=== PATIENT | female | born 1975 ===

== ENCOUNTER 2021-05-29 17:43 | Emergency (ER) | payer SELFPAY ==
[2021-05-29 20:09] VITALS: BP 142/74
--- NOTE | 2021-05-29 21:39 | Emergency Department Report ---
ED General Adult HPI - General Chief complaint: Neck Pain/Injury Stated complaint: EXTREME HEADACHE [id number] Time Seen by Provider: 05/29/21 20:21 Source: patient Mode of arrival: Ambulatory Limitations: No Limitations - History of Present Illness Initial comments: 46-year-old [place] female [facility] emerge department complaining of a 3-week history of right-sided neck pain of unknown etiology and may have slept on it awkwardly but cannot quite recall. Pain is relieved by Motrin but then does recur. Is dull and throbbing worse with palpation and certain range of motion. No numbness or tingling, no fever, chills, sweats. No chest pain palpitation no nausea vomiting -: Gradual Radiation: non-radiation Quality: dull Consistency: constant Improves with: none Worsens with: none Associated Symptoms: denies: confusion, chest pain, diaphoresis, fever/chills, loss of appetite, malaise, rash, shortness of breath, syncope, weakness - Related Data Previous Rx's Medication Instructions Recorded Last Taken Type Ketorolac [Toradol] 10 mg PO Q6H PRN #15 tablet 05/29/21 Unknown Rx methOCARBAMOL [Robaxin TAB] 750 mg PO Q8H PRN #14 tablet 05/29/21 Unknown Rx ED Review of Systems ROS: Stated complaint: EXTREME HEADACHE [id number] Other details as noted in HPI Comment: All other systems reviewed and negative ED Past Medical Hx - Past Medical History Previous Medical History?: No - Surgical History Past Surgical History?: No - Medications Home Medications: Home Medications Medication Instructions Recorded Confirmed Last Taken Type Ketorolac [Toradol] 10 mg PO Q6H PRN #15 tablet 05/29/21 Unknown Rx methOCARBAMOL [Robaxin TAB] 750 mg PO Q8H PRN #14 tablet 05/29/21 Unknown Rx ED Physical Exam - General Limitations: No Limitations General appearance: alert, in no apparent distress - Head Head exam: Present: atraumatic, normocephalic - Eye Eye exam: Present: normal appearance - ENT ENT exam: Present: mucous membranes moist - Neck Neck exam: Present: normal inspection, tenderness (To the right side and the left trapezial region. In the area of the levator scapula as well. Spurling's test is negative there is full range of motion noted there is some discomfort with right lateral flexion) - Respiratory Respiratory exam: Present: normal lung sounds bilaterally. Absent: respiratory distress, wheezes, rales - Cardiovascular Cardiovascular Exam: Present: regular rate, normal rhythm. Absent: systolic murmur, diastolic murmur, rubs, gallop - GI/Abdominal GI/Abdominal exam: Present: soft, normal bowel sounds - Extremities Exam Extremities exam: Present: normal inspection, normal capillary refill - Back Exam Back exam: Present: normal inspection - Neurological Exam Neurological exam: Present: alert, oriented X3 - Psychiatric Psychiatric exam: Present: normal affect, normal mood - Skin Skin exam: Present: warm, dry, intact, normal color. Absent: rash ED Course Vital Signs 05/29/21 20:05 Temperature 98.2 F Pulse Rate 76 Respiratory 16 Rate Blood Pressure 142/74 [Left] O2 Sat by Pulse 98 Oximetry Critical care attestation.: If time is entered above; I have spent that time in minutes in the direct care of this critically ill patient, excluding procedure time. ED Disposition Clinical Impression: Neck pain, Cephalgia Disposition: 07 LEFT AWOL/ELOPED Is pt being admited?: No Does the pt Need Aspirin: No Condition: Stable Instructions: Neck Exercises, Radicular Pain, Pain Without a Known Cause Prescriptions: methOCARBAMOL [Robaxin TAB] 750 mg PO Q8H PRN #14 tablet PRN Reason: Pain, Moderate (4-6) Ketorolac [Toradol] 10 mg PO Q6H PRN #15 tablet PRN Reason: Pain Referrals: [facility] [Provider Group] - 3-5 Days
== END 2021-05-29 23:21 | disposition left against medical advice (07) ==
LOC: ED 17:43
DX: M54.2 Cervicalgia (principal)
CPT/HCPCS: 99281